=== PATIENT | male | born 1995 | race Caucasian/White ===

== ENCOUNTER 2020-05-23 00:41 | Outpatient (CLI) | payer OTHER, SELFPAY ==
[2020-05-23 17:37] LABS: SARS-CoV-2 RNA PCR Negative
== END 2020-05-23 00:42 | disposition home or self-care (01) ==
LOC: ANHCOVIDDT 00:41
PROVIDERS: PCP Family Medicine; Visit Provider Otolaryngology
DX: Z01.812 Encounter for preprocedural laboratory examination (principal); Z20.828 Contact with and (suspected) exposure to other viral communicable diseases
CPT/HCPCS: 87635; C9803; U0003

== ENCOUNTER 2020-05-26 01:00 | Day surgery (SDC) | payer OTHER, SELFPAY ==
[2020-05-19 10:41] VITALS: BMI 30.1
--- NOTE | 2020-05-20 08:07 | PM.HPGS ---
History of Present Illness History of Present Illness Consent: Risks, benefits, and alternatives have been discussed and questions answered. Patient agrees to proceed with procedure. Chief complaint: Hypertrophic Tonsils Narrative: Jose Major is a 24 year old male having a bilateral tonsillectomy Review of Systems Review of Systems: All systems reviewed & are unremarkable except as noted in HPI and below PMFSH Family History Family History Grandparent Diabetes mellitus Social History Social History Smoking status: Never smoker Alcohol intake: current Drinks per week: 1 Meds Home Medications and Allergies Home Medications Medication Instructions Recorded Confirmed Type methylphenidate HCl 54 mg 54 mg PO QAM #30 tablet 05/13/20 05/19/20 Rx tablet,extended release 24 hr Allergies Allergy/AdvReac Type Severity Reaction Status Date / Time grass pollen Allergy Unknown Unknown Verified 05/19/20 10:42 house dust mite Allergy Unknown Unknown Verified 05/19/20 10:42
--- NOTE | 2020-05-20 08:13 | PM.HPGS ---
History of Present Illness History of Present Illness Consent: Risks, benefits, and alternatives have been discussed and questions answered. Patient agrees to proceed with procedure. Chief complaint: Hypertrophic Tonsils Narrative: Jose Major is a 24 year old male is having a tonsillectomy for chronic tonsillitis Review of Systems Review of Systems: All systems reviewed & are unremarkable except as noted in HPI and below PMFSH Family History Family History Grandparent Diabetes mellitus Social History Social History Smoking status: Never smoker Alcohol intake: current Drinks per week: 1 Meds Home Medications and Allergies Home Medications Medication Instructions Recorded Confirmed Type methylphenidate HCl 54 mg 54 mg PO QAM #30 tablet 05/13/20 05/19/20 Rx tablet,extended release 24 hr Allergies Allergy/AdvReac Type Severity Reaction Status Date / Time grass pollen Allergy Unknown Unknown Verified 05/19/20 10:42 house dust mite Allergy Unknown Unknown Verified 05/19/20 10:42 Assessment and Plan Additional Plan plan is a chronic is a tonsillectomy
--- NOTE | 2020-05-26 06:13 | PM.HPGS ---
History of Present Illness History of Present Illness Consent: Risks, benefits, and alternatives have been discussed and questions answered. Patient agrees to proceed with procedure. Chief complaint: Hypertrophic Tonsils Narrative: Jose Major is a 24 year old male with recurring episodes of tonsillitis admitted for tonsillectomy Review of Systems Review of Systems: All systems reviewed & are unremarkable except as noted in HPI and below PMFSH Family History Family History Grandparent Diabetes mellitus Social History Social History Smoking status: Never smoker Alcohol intake: current Drinks per week: 1 Meds Home Medications and Allergies Home Medications Medication Instructions Recorded Confirmed Type methylphenidate HCl 54 mg 54 mg PO QAM #30 tablet 05/13/20 05/19/20 Rx tablet,extended release 24 hr Allergies Allergy/AdvReac Type Severity Reaction Status Date / Time grass pollen Allergy Unknown Unknown Verified 05/19/20 10:42 house dust mite Allergy Unknown Unknown Verified 05/19/20 10:42 Assessment and Plan Additional Plan Plan is a tonsillectomy
--- NOTE | 2020-05-26 06:14 | WPDHPUPDATE1 ---
History and Physical Update Update Date/Time: 05/26/20 06:14 History and Physical has been reviewed, including an updated exam of the patient. There are NO changes in the patient's condition. Risks, benefits, and alternatives have been discussed and questions answered. Patient agrees to proceed with procedure.
[2020-05-26 06:40] VITALS: BP 124/68; PULSE 99; RESP 18; TEMP 36.4; O2SAT 96
[2020-05-26] MEDS: LACTATED RINGERS 1,000 ML 30 ML IV CONT ×2 (06:55→09:20)
[2020-05-26] MEDS: ACETAMINOPHEN 500 MG TABLET 1000 MG PO (07:48)
--- NOTE | 2020-05-26 07:59 | WPDANESEPPF ---
Anes - Initial Pre Proc Eval Procedure: Operation Date: 05/26/20 08:15 Proposed Procedures p Tonsillectomy - Ross Luong MD Date/Time: 05/26/20 07:59 Surgeon: Ross Luong MD Pre Op Diagnosis: Hypertrophic Tonsils Patient Data Age: 24 Gender: M Height: 1.78 m Weight: 97.23 kg Last Vital Signs Temp 36.4 C 05/26/20 06:40 Pulse 99 05/26/20 06:40 Resp 18 05/26/20 06:40 BP 124/68 05/26/20 06:40 Pulse Ox 96 05/26/20 06:40 Allergies Allergy/AdvReac Type Severity Reaction Status Date / Time grass pollen Allergy Unknown Unknown Verified 05/26/20 07:19 house dust mite Allergy Unknown Unknown Verified 05/26/20 07:19 Home Medications Medication Instructions Recorded Confirmed Type methylphenidate HCl 54 mg 54 mg PO QAM #30 tablet 05/13/20 05/26/20 Rx tablet,extended release 24 hr Patient hx anesthesia problems: none Family hx anesthesia problems: none PMFSH Past Medical History Medical History (Updated 05/26/20 @ 08:00 by Jim Calvillo MD) Allergic rhinitis, cause unspecified Attention-deficit hyperactivity disorder, unspecified type Hypertrophy of tonsils Obesity Family History Family History Grandparent Diabetes mellitus Social History Social History Smoking status: Never smoker Alcohol intake: current Drinks per week: 1 Anes - Eval Final PreProcedure Day of Procedure 05/26/20 07:59 Patient weight: obese Heart: regular rate and rhythm Lungs: clear to auscultation and normal air movement Airway: Mallampati scale class II Neurological: alert and oriented Last oral intake: >/= 8 hours ASA classification: III Emergent: no Anesthetic plan: proceed Anesthesia type and monitoring: general ETT Informed Consent: The patient's anesthetic plan and its attendant risks and benefits were discussed with the patient/family/POA. Questions were solicited and answers provided to the satisfaction of the patient/family/POA.
--- NOTE | 2020-05-26 09:02 | PM.PROC ---
Procedure Note - Detailed Date of procedure: 05/26/20 Pre-op diagnosis: Hypertrophic Tonsils chronic tonsillitis Post-op diagnosis: same Procedure performed: TONSILLECTOMY/ADENOIDECTOMY SURGERY POSTOPERATIVE DISCHARGE INSTRUCTIONS DR. WRIGHT [facility] This is an information sheet to tell you some things to expect and some things not to expect when you leave the hospital after having Tonsillectomy/Adenoidectomy surgery. Please follow any specific instructions Dr. Wright has given you. 1. Diet You have received IV fluids during hospitalization, which will carry you through the next 24 to 48 hours. It should be no cause for alarm if you are not taking much liquid orally. Encourage yourself to drink liquids, but please avoid acidic liquids and hot liquids/food. Products such as orange juice or lemonade will sting and burn. Popsicles and cool liquids maybe better tolerated than thick liquids such as ice cream. Dairy product will have a tendency to make secretions thick. It is much more important that your child drink fluids than eat food. Do not be alarmed if you eat very little over the next several days. As long as you are drinking liquids, able to produce tears when crying and urinating, then adequate hydration is being maintained. Suggested foods are sherbet, Jell-O, broth, pudding, pureed vegetables, mashed potatoes..etc. No soda, potato chips, or any type of food that may scratch the throat is permitted. Do not expect to eat solid food for 7-8 days. As you begin to feel better, you may advance your diet as tolerated. 2. Nausea Nausea and vomiting can occur during the first evening as a result of having a general anesthetic. Giving pain medication or antibiotics on an empty stomach can make it worse. If you are not able to keep liquids down do not force them. Stop trying the liquids and try again in the morning. If you experience nausea and vomiting at that time, please call Dr. Wright. 3. Pain Typically patients report that the pain builds up for the first few days and is the worst around the 5th day following tonsillectomy. The amount of discomfort usually lessens, then may increase again around day 7-10 after surgery, as some of the whitish tissue covering the tonsillectomy site falls off. After this, there is generally steady improvement with less discomfort. Complete healing of the operative area generally takes several weeks. An ice collar or cold compress to the neck are soothing and may be desired. It is very common for the ears to hurt during the healing process. Ear pain, at times, may be severe. This ear pain is actually referred pain from the healing throat and is general not a result of an ear infection. If there is no drainage from the ear, there is no cause for concern. There maybe some tongue or jaw pain experienced for a couple weeks. This is caused from the position of the mouth during surgery. 4. Medication For pain relief, please take pain medication as prescribed. If nausea should occur due to pain medication, you may take plain Tylenol elixir. Please stay away from aspirin and aspirin containing products for 2 weeks. 5. Appearance The throat will have a yellow to gould-white appearance for 10-14 days. This is normal and should not cause alarm. 6. Bleeding Bleeding is a rare problem that can occur after tonsil and /or adenoid surgery. The chances of this happening are greatest during the first several hours after surgery and then between the fourth to tenth day afterwards. The normal appearance of the yellow to gould-white appearance is the area where the tonsils were removed. It is normal for this material, simil
[2020-05-26 09:10] VITALS: BP 101/52; PULSE 90; RESP 12; TEMP 36.6; O2SAT 95
[2020-05-26] MEDS: fentaNYL CITRATE INJ (*CRX) 100 MCG/2 ML VIAL 25 MCG IV PUSH (09:14)
[2020-05-26 09:20] VITALS: BP 110/85; PULSE 97; RESP 20; O2SAT 100
[2020-05-26 09:35] VITALS: BP 126/90; PULSE 94; RESP 20; O2SAT 97
[2020-05-26 09:47] VITALS: BP 122/75; PULSE 91; RESP 16
[2020-05-26] MEDS: IBUPROFEN SUSPENSION 200 MG/10 ML UDC 800 MG PO (10:04)
[2020-05-26 10:15] VITALS: BP 128/77; PULSE 89; RESP 16
--- NOTE | 2020-05-27 07:12 | PM.PROC ---
Procedure Note - Detailed Date of procedure: 05/26/20 Pre-op diagnosis: Hypertrophic Tonsils chronic tonsillitis Post-op diagnosis: same Procedure performed: tonsillectomy Description of procedure: Patient was prepped and draped in usual fashion after induction of anesthesia. The McIvor mouth gag was inserted. The tonsils were removed dissection technique hemostasis was obtained electrocautery. The mouth was inspected for bleeding. When stablized patient was awaken and brought to the recovery room in good condition. Anesthesia: GLMA Surgeon: Ross Luong MD Estimated blood loss (mL): 15 Drains: No Packing: No Pathology: none sent Complications: No immediate complications Condition: stable Disposition: PACU Findings: chronic tonsillitis
== END 2020-05-26 10:42 | disposition home or self-care (01) ==
PROVIDERS: PCP Family Medicine; Visit Provider Otolaryngology
PROC: (CPT 42826; principal; 2020-05-26 08:15)
DX: J35.01 Chronic tonsillitis (principal); F90.9 Attention-deficit hyperactivity disorder, unspecified type; E66.9 Obesity, unspecified; Z68.30 Body mass index [BMI] 30.0-30.9, adult
CPT/HCPCS: 42826; 88302; A9270; J0330; J1100; J2250; J2405; J2704; J3010; J7120

== ENCOUNTER 2020-06-05 12:24 | Day surgery (SDC) | payer OTHER, SELFPAY ==
[2020-06-05] VITALS (11 sets, daily range): BP systolic 88–133; BP diastolic 55–94; PULSE 85–108; RESP 12–28; TEMP 36–36.7; O2SAT 95–100
--- NOTE | 2020-06-05 12:49 | ED.GENADULT ---
HPI - General Adult General Chief complaint: Unspecified Stated complaint: Throat Bleeding Time Seen by Provider: 06/05/20 12:38 Source: patient Mode of arrival: ambulatory Limitations: no limitations History of Present Illness HPI narrative: Patient is a 24-year-old male who presents to emergency department for evaluation of tonsillar bleeding had tonsillectomy a week ago by Dr. Patton, was advised to come to the emergency department today when he experienced bleeding and has persisted since coughing up a small scab he notes patient denies URI symptoms or other complaints other than slight nausea presents in no distress Related Data Allergies Allergy/AdvReac Type Severity Reaction Status Date / Time grass pollen Allergy Unknown Unknown Verified 06/05/20 12:32 house dust mite Allergy Unknown Unknown Verified 06/05/20 12:32 Review of Systems Review of Systems: All systems reviewed & are unremarkable except as noted in HPI and below PMFSH Past Medical History Medical History Allergic rhinitis, cause unspecified Attention-deficit hyperactivity disorder, unspecified type Hypertrophy of tonsils Obesity Family History Family History Grandparent Diabetes mellitus Social History Social History Smoking status: Never smoker Alcohol intake: current Drinks per week: 1 Exam Narrative: Exam Narrative: GENERAL: Well-appearing, well-nourished, and in no acute distress. HEAD: Normocephalic, atraumatic. EYES: PERRLA and EOMI. ENT: Nares clear, no rhinorrhea or epistaxis. Patient with bleeding from the right posterior tonsil NECK: Supple. No adenopathy or masses. CHEST: Clear to auscultation. No respiratory distress. No wheezes rales or rhonchi HEART: Regular rate and rhythm. No murmur heard. EXTREMITIES: Normal range of motion. No edema. SKIN: Warm, dry, no rash. NEURO: No focal deficits. Alert and oriented x3. PSYCH: Normal mood and affect. Course Reevaluation(s) Reevaluation #1: Patient in the room stable at this time no distress Date: 06/05/20 Time: 13:39 Consultations Consultation #1: spoke with ent dr porter who is coming to see the patient in the ed Date: 06/05/20 Time: 12:58 Consultation #2: Patient seen by ENT will go to the OR Date: 06/05/20 Time: 13:40 Vital Signs Vital signs: Vital Signs Temperature 98.0 F 06/05/20 12:29 Pulse Rate 108 H 06/05/20 12:29 Respiratory Rate 28 H 06/05/20 12:29 Blood Pressure 133/92 H 06/05/20 12:29 Pulse Oximetry 99 06/05/20 12:29 Temperature 98.0 F 06/05/20 12:29 Pulse Rate 108 H 06/05/20 12:29 Respiratory Rate 28 H 06/05/20 12:29 Blood Pressure 133/92 H 06/05/20 12:29 Pulse Oximetry 99 06/05/20 12:29 Medical Decision Making MDM Narrative Medical decision making narrative: Patient stable at this time given fluids in emergency department hemodynamically stable will go to the OR with ENT Vital Signs Vital Signs: Vital Signs Temperature 98.0 F 06/05/20 12:29 Pulse Rate 108 H 06/05/20 12:29 Respiratory Rate 28 H 06/05/20 12:29 Blood Pressure 133/92 H 06/05/20 12:29 Pulse Oximetry 99 06/05/20 12:29 Temperature 98.0 F 06/05/20 12:29 Pulse Rate 108 H 06/05/20 12:29 Respiratory Rate 28 H 06/05/20 12:29 Blood Pressure 133/92 H 06/05/20 12:29 Pulse Oximetry 99 06/05/20 12:29 Discharge Plan Discharge Clinical Impression: Haemorrhage, tonsil, postoperative Patient Disposition: Still a Patient Condition: Stable Prescriptions: No Action methylphenidate HCl [Concerta] 54 mg tablet extended release 24hr 54 mg PO QAM Qty: 30 RF: 0 Follow-up/Referrals: Zoran Swan MD [Primary Care Provider] -
[2020-06-05] MEDS: SODIUM CHLORIDE 0.9% IV 1,000 ML 999 ML IV CONT (13:33)
--- NOTE | 2020-06-05 13:55 | PM.IMHP ---
H&P: HPI History of Present Illness Date/Time: 06/05/20 13:55 Chief complaint: Throat Bleeding Narrative: Jose Major is a 24 year old male s/p tonsillectomy several days ago. He began bleeding this afternoon. No inciting, palliating, or provoking factors. Unable to control in the ER. Review of Systems Constitutional: Constitutional: Denies fatigue, Denies fever(s) and Denies lethargy Eyes: Eyes: Denies blurry vision and Denies change in vision ENT: Reports as per HPI Cardiovascular: Cardiovascular: Denies chest pain Respiratory: Respiratory: Denies cough Endocrine: Endocrine: Denies fatigue Hematologic/Lymphatic: Hematologic/Lymphatic: Denies easy bleeding, Denies easy bruising and Denies lymphadenopathy Allergic/Immunologic: Allergic/Immunologic: Denies seasonal rhinorrhea [facility] Past Medical History Medical History Allergic rhinitis, cause unspecified Attention-deficit hyperactivity disorder, unspecified type Hypertrophy of tonsils Obesity Family History Family History (Reviewed 02/12/20 @ 09:40 by Monica Duarte, [facility]) Grandparent Diabetes mellitus Social History Social History Smoking status: Never smoker Alcohol intake: current Drinks per week: 1 Meds Home Medications and Allergies Home Medications Medication Instructions Recorded Confirmed Type methylphenidate HCl 54 mg 54 mg PO QAM #30 tablet 05/13/20 05/26/20 Rx tablet,extended release 24 hr Allergies Allergy/AdvReac Type Severity Reaction Status Date / Time grass pollen Allergy Unknown Unknown Verified 06/05/20 12:32 house dust mite Allergy Unknown Unknown Verified 06/05/20 12:32 Vital Signs Vital Signs - 24 hr 06/05/20 12:29 Temperature 36.7 C Pulse Rate 108 H Respiratory Rate 28 H Blood Pressure 133/92 H Pulse Oximetry 99 Exam Const: General: cooperative, healthy appearing, comfortable, well developed and alert HENMT: Head: normal to inspection, normocephalic and atraumatic Ears: hearing grossly normal bilaterally, external ears normal, TM's normal bilaterally and EAC's normal General nose exam: Normal external nose present, Normal nares present, No nasal polyps present, Normal nasal mucous membranes and turbinates present and Normal septum present Face and sinus: normal facial exam Mouth: Yes Normal oral and palatal mucosa present, Yes lip normal, Yes tongue normal, Yes oropharynx normal and Yes moist mucous membranes Teeth and gingiva: dentition normal and gingiva normal Throat: posterior oropharynx abnormal, tonisls abnormal, uvula midline and other (Left inferior tonsillar fossa bleeding) Eyes: General: appearance normal, both eyes and all related structures Periorbital: periorbital findings normal Eyelids: eyelids normal Conjunctivae: conjunctivae normal Sclera: sclerae normal Neck: Neck: normal visual inspection, full ROM and no lymphadenopathy Thyroid: thyroid normal Lymphatic: no lymphadenopathy noted Resp: Effort & Inspection: normal respiratory effort and able to speak in complete sentences Cardio: Jugular venous distension: no JVD Neuro: Cranial nerves: Yes CN's II-XII intact bilaterally Assessment and Plan Assessment and plan (1) Haemorrhage, tonsil, postoperative: Status: Acute Assessment and Plan: Plan is for the OR for control of post operative hemorrhage. Risks and benefits discussed in great detail. The patient voiced understanding and agreed.
--- NOTE | 2020-06-05 13:58 | WPDHPUPDATE1 ---
History and Physical Update Update Date/Time: 06/05/20 13:58 History and Physical has been reviewed, including an updated exam of the patient. There are NO changes in the patient's condition. Risks, benefits, and alternatives have been discussed and questions answered. Patient agrees to proceed with procedure.
[2020-06-05 14:00] LABS: Basophils Absolute Auto 0.1 K/mm3 (0.0-0.1); Basophils Percent Auto 0.5 % (0.2-1.2); Eosinophils Absolute Auto 0.2 K/mm3 (0-0.3); Hematocrit 40.9 % (42.0-52.0); Hemoglobin 13.2 g/dL (14.0-18.0); Immature Granulocyte Absolute 0.28 K/mm3 (0.00-0.031); Immature Granulocyte Percent A 1.8 % (0-0.5); Lymphocytes Absolute Auto 2.63 K/mm3 (0.9-3.2); Lymphocytes Percent Auto 17.2 % (18.3-44.2); Mean Corpuscular HGB Conc 32.3 g/dl (32-36); Mean Corpuscular Hemoglobin 27.8 pg (26-34); Mean Corpuscular Volume 86.1 fl (80-100); Mean Platelet Volume 8.6 fl (7.4-10.4); Monocytes Absolute Auto 0.9 K/mm3 (0.1-0.6); Monocytes Percent Auto 5.8 % (2.6-8.5); Neutrophils Absolute Auto 11.3 K/mm3 (1.3-6.7); Neutrophils Percent Auto 73.7 % (45.5-73.1); Platelet Count Result 414 k/mm3 (150-375); Red Blood Count 4.75 M/mm3 (4.6-6.20); White Blood Count 15.3 K/mm3 (4.5-10.0)
[2020-06-05] MEDS: LACTATED RINGERS 1,000 ML 30 ML IV CONT ×2 (14:00→15:11)
--- NOTE | 2020-06-05 14:00 | PC.NURSE ---
Pt. became pale, cool, diaphoretic and stated they feel like they were going to pass out. Pt. blood pressure dropped. ERP notified and is aware. Pre-op here to take patient to the OR. Pt. recovered from event and feels a lot better. Blood pressure dropped from 76/44 and increased to 88/55. IVFs still infusing.
--- NOTE | 2020-06-05 14:18 | WPDANESEPPF ---
Anes - Initial Pre Proc Eval Procedure: Operation Date: 06/05/20 14:00 Proposed Procedures p Post Op Tonsil Bleed - Dino Dietrich MD Date/Time: 06/05/20 14:18 Surgeon: Dino Dietrich MD Pre Op Diagnosis: Throat Bleeding Patient Data Age: 24 Gender: M Height: 5 ft 10 in Weight: 95.25 kg Last Vital Signs Temp 36.7 C 06/05/20 12:29 Pulse 94 06/05/20 14:00 Resp 20 06/05/20 14:00 BP 88/55 L 06/05/20 14:00 Pulse Ox 99 06/05/20 14:00 Allergies Allergy/AdvReac Type Severity Reaction Status Date / Time grass pollen Allergy Unknown Unknown Verified 06/05/20 12:32 house dust mite Allergy Unknown Unknown Verified 06/05/20 12:32 Home Medications Medication Instructions Recorded Confirmed Type methylphenidate HCl 54 mg 54 mg PO QAM #30 tablet 05/13/20 05/26/20 Rx tablet,extended release 24 hr Laboratory Tests 06/05/20 13:55 WBC 15.3 K/mm3 H K/mm3 (4.5-10.0) RBC 4.75 M/mm3 M/mm3 (4.6-6.20) Hgb 13.2 g/dL L g/dL (14.0-18.0) Hct 40.9 % L % (42.0-52.0) MCV 86.1 fl fl (80-100) MCH 27.8 pg pg (26-34) MCHC 32.3 g/dl g/dl (32-36) RDW 13.0 % % (11.5-14.5) Plt Count 414 k/mm3 H k/mm3 (150-375) MPV 8.6 fl fl (7.4-10.4) Immature Gran % (Auto) 1.8 % H % (0-0.5) Neut % (Auto) 73.7 % H % (45.5-73.1) Lymph % (Auto) 17.2 % L % (18.3-44.2) Custer % (Auto) 5.8 % % (2.6-8.5) Eos % (Auto) 1.0 % % (0-4.4) Baso % (Auto) 0.5 % % (0.2-1.2) Lymph # (Auto) 2.63 K/mm3 K/mm3 (0.9-3.2) Custer # (Auto) 0.9 K/mm3 H K/mm3 (0.1-0.6) Eos # (Auto) 0.2 K/mm3 K/mm3 (0-0.3) Baso # (Auto) 0.1 K/mm3 K/mm3 (0.0-0.1) Abs Immat Gran (auto) 0.28 K/mm3 H K/mm3 (0.00-0.031) Absolute Neuts (auto) 11.3 K/mm3 H K/mm3 (1.3-6.7) Absolute Nucleated RBC 0.0 K/mm3 K/mm3 (0.0-0.012) Nucleated RBC % 0.0 % % (0.0-0.2) Patient hx anesthesia problems: none Family hx anesthesia problems: none PMFSH Past Medical History Medical History Allergic rhinitis, cause unspecified Attention-deficit hyperactivity disorder, unspecified type Hypertrophy of tonsils Obesity Family History Family History Grandparent Diabetes mellitus Social History Social History Smoking status: Never smoker Alcohol intake: current Drinks per week: 1 Anes - Eval Final PreProcedure Day of Procedure 06/05/20 14:18 Patient weight: obese Heart: regular rate and rhythm Lungs: clear to auscultation Airway: Mallampati scale class II Neurological: alert and oriented Last oral intake: 4 hours ASA classification: III Emergent: yes Anesthetic plan: proceed Anesthesia type and monitoring: general ETT and standard monitoring Informed Consent: The patient's anesthetic plan and its attendant risks and benefits were discussed with the patient/family/POA. Questions were solicited and answers provided to the satisfaction of the patient/family/POA.
--- NOTE | 2020-06-05 15:30 | PM.PROC ---
Procedure Note - Detailed Date of procedure: 06/05/20 Pre-op diagnosis: Throat Bleeding post tonsillectomy hemorrhage Post-op diagnosis: same Procedure performed: control of post tonsillectomy hemorrhage Description of procedure: the patient was correctly identified and consent was verified in the preoperative holding area. The patient was then brought to the operating room and a time-out was performed. General anesthesia was induced and an endotracheal tube was secured the patient's airway in the midline. The bed was then rotated. A Ana Luisa mouth gag was placed in the patient's oral cavity revealing left-sided tonsillar hemorrhage. There is no bleeding vessel found per se as the area was diffusely bleeding. Bovie suction cautery at a setting of 20 and 25 was utilized to control the hemorrhage. The McIvor mouth gag was then relaxed for 30 seconds and reopened to reveal no bleeding. Hemostasis was excellent. Care of the patient was turned over to Anesthesiology. I performed all dictated portions of the procedure. Of note the left posterior pillar was missing prior to my cauterization. Anesthesia: GLMA Surgeon: Dino Dietrich MD Estimated blood loss (mL): 5 Complications: No immediate complications Condition: stable Disposition: PACU Findings: Absent left posterior pillar. Left diffuse postoperative tonsillar fossa hemorrhage.
--- NOTE | 2020-06-05 17:03 | SUR.PHASEII ---
1700; PT AWAKE AND ALERT. DENIES PAIN. READY TO GO HOME. MEETS DISCHARGE CRITERIA.
--- NOTE | 2020-06-05 17:21 | SUR.PHASEII ---
PT DRESSED AND READY FOR RIDE. DENIES PAIN OR NAUSEA.
== END 2020-06-05 17:30 | disposition home or self-care (01) ==
LOC: ANHED 13:47 → ANHSURGERY 13:52
PROVIDERS: Emergency Medicine Emergency Medical Services; Emergency Provider Emergency Medicine; PCP Family Medicine; Visit Provider Otolaryngology
PROC: (CPT 42960; principal; 2020-06-05 14:00)
DX: J95.830 Postprocedural hemorrhage of a respiratory system organ or structure following a respiratory system procedure (principal); Y83.8 Other surgical procedures as the cause of abnormal reaction of the patient, or of later complication, without mention of misadventure at the time of the procedure; F90.9 Attention-deficit hyperactivity disorder, unspecified type; E66.9 Obesity, unspecified; Z68.30 Body mass index [BMI] 30.0-30.9, adult
CPT/HCPCS: 42960; 36415; 85025; 99285; J0330; J1100; J2250; J2405; J2704; J3010; J7030; J7120

== ENCOUNTER 2025-06-05 09:09 | Outpatient (CLI) | payer BC, SELFPAY ==
--- NOTE | 2025-06-17 14:00 | WPDHOMESLEEP ---
Sleep Study - Home Unattended Date of Study: 06/05/25 Ordering Provider: Zoran Swan MD Interpreting Provider: Lakeisha Galvan, DO Home Sleep Study Type: Watch PAT Height: 1.78 m Weight: 106.594 kg Body Mass Index: 33.7 Neck Circumference (inches): 17.5 [place]: 12 Reason for Sleep Study Daytime hypersomnia Sleep History The patient is a 29-year-old male that had a sleep study ordered by his primary care physician for evaluation sleep apnea. The patient occasionally awakens from sleep short of breath. He denies awakening at night with heartburn, belching or cough. He constantly snores loudly enough that others complain. He occasionally has trouble sleeping when he has a cold. He denies waking up gasping for air throughout the night. He frequently has breathing problems at night observed by himself or others. He denies sweating excessively at night. He denies having heart palpitations or irregular heartbeats during the night. He rarely falls asleep during the day but never while driving. He denies cataplexy. He frequently has trouble at school or work due to sleepiness. He occasionally feels unable to move while waking up or falling asleep. He denies hypnagogic / hypnopompic hallucinations. He occasionally feels afraid of going to sleep. He occasionally has nightmares. He frequently remembers his dreams. He rarely has thoughts racing through his mind. He rarely feels sad or depressed. He rarely has anxiety. He denies having muscular tension. He denies noticing parts of his body jerk. He rarely kicks during the night. He denies having crawling and aching feelings in his legs and denies having leg pain during the night. He denies grinding his teeth during sleep and denies awakening with morning jaw pain. He denies being bothered by pain during the day and denies being awakened by pain during the night. He denies waking up feeling stiff in the morning. He rarely wakes up with sore or achy muscles. He denies waking up with pain in the neck, spine and other joints. He goes to bed at 11:00 p.m. every night. It takes him 15-30 minutes to fall asleep. He wakes up once throughout the night at most urinate is able to fall back asleep within 10 minutes. He wakes up at 7:00 a.m. every morning. He typically gets 7 hours of sleep per night. He will stay in bed for 20 minutes after waking up in the morning. He currently lives alone. He denies consuming any caffeinated beverages within 2 hours of bedtime. He denies engaging in physical exercise before bedtime. He will watch television before falling asleep. He denies reading before falling asleep. He denies taking naps in the afternoon or the evening. He consumes 2 caffeinated beverages per day. He denies tobacco, alcohol and recreational drug use. [facility] Past Medical History Medical History Ophthalmic migraine Hypertrophy of tonsils Allergic rhinitis, cause unspecified Attention-deficit hyperactivity disorder, unspecified type Obesity Surgical History Surgical History Hx of tonsillectomy Family History Family History Grandparent Diabetes mellitus Social History Social History Smoking status: Never smoker Alcohol intake: current Drinks per week: 1 Medications Home Medications ?Medication ?Instructions ?Recorded ?Confirmed ?Type sertraline 50 mg tablet (Zoloft) 50 mg PO DAILY #90 tabs 04/10/25 04/18/25 Rx azelastine 137 mcg (0.1 %) nasal 1 spray intranasal Q12H 30 days 04/18/25 04/18/25 Rx spray #30 mL fluticasone propionate 50 1 spray intranasal DAILY 30 days 04/18/25 04/18/25 Rx mcg/actuation nasal #16 grams spray,suspension methylphenidate HCl 54 mg 54 mg PO QAM #30 tabs 05/12/25 Rx tablet,extended release 24 hr (Concerta) methylphenidate HCl 54 mg 54 mg PO QAM #30 tabs 05/12/25 Rx tablet,extended release 24 hr (Concerta) methylphenidate HCl 54 mg 54 mg PO QAM #30 tabs 05/12/25 Rx tablet,extended release 24 hr (Concerta) Sleep Procedure The sleep study was completed using LeverPAT a technically adequate device with seven channels: peripheral arterial tone, actigraphy, body position, snore, respiratory movement, pulse oximetry, sleep staging, and heart rate. Prior to using the device, the patient received verbal and written instructions for its application and was provided with the help desk phone number for additional telephonic instruction with 24-hour availability of qualified personnel to answer questions. The study was scored using CMS guidelines. Sleep Architecture The total recording time is 7 hrs, 52 min. The total sleep time is 7 hrs, 9 min. Sleep latency is 19 minutes. REM latency is 97 minutes. The patient had 6 episodes of waking. Sleep architecture shows 17.6% deep sleep, 67.5% light sleep, and (as % Total Sleep Time) showed NREM (Light 67.5%; Deep 17.6%), and a 14.9% stage REM. The patient spent 36.8% of total sleep time in the supine position. Sleep efficiency was 90.89. Respiratory Analysis The overall AHI (pAHI 4%:) is 33.4. The overall AHI (pAHI 3%:) is 45.7. The central AHI is 0.6. The AHI was 44.2 in NREM and 53.9 in REM sleep. The AHI was 70.2 in Supine and 31.4 in Non-supine sleep. Percent of Rui Berger respirations is 0.0. Oximetry Data The oxygen desaturation index (JONATHAN 4%:) is 25.4. The mean saturation is 93%, and the lowest saturation is 82%. Time spent with saturation < 88% is 4.9 minutes. Snoring Profile Snoring average intensity is 47 dB. The patient snored above 45 decibels for 217.1 minutes, 50.5% of sleep time. Cardiac Profile The average pulse rate is 80 beats per minutes. The lowest pulse rate is 60 bpm. The highest pulse rate reported is 116 bpm. Atrial fibrillation was not detected. Premature beats occur <0.1 per minute. Assessment and Plan Assessment and Plan (1) WANDER (obstructive sleep apnea): Code(s): G47.33 - Obstructive sleep apnea (adult) (pediatric) Status: Acute Assessment and Plan: The patient had an overall AHI of 33.4 with desaturation down to 82%. This is consistent with severe sleep apnea. I recommend that the patient have a CPAP titration with the use of a hypnotic to ensure we obtain enough sleep data and find an optimal pressure setting. If the patient's insurance company does not cover the sleep study, the patient could do a trial of AutoPAP 5-15 cm H2O. Data The data obtained during this sleep study is adequate for interpretation. Certification This sleep study has been reviewed by a board certified sleep medicine physician.
[2025-06-17 14:02] VITALS: BMI 33.7
== END 2025-06-06 10:45 | disposition home or self-care (01) ==
PROVIDERS: PCP Family Medicine; Visit Provider Family Medicine
DX: G47.33 Obstructive sleep apnea (adult) (pediatric) (principal); F90.9 Attention-deficit hyperactivity disorder, unspecified type; F39 Unspecified mood [affective] disorder
CPT/HCPCS: 95800

== ENCOUNTER 2025-08-05 09:26 | Outpatient (CLI) | payer BC, SELFPAY ==
[2025-09-04 17:30] VITALS: BMI 33.6
--- NOTE | 2025-09-04 17:30 | WPDSLEEPSTUD ---
Sleep Study Date of Study: 08/05/25 Ordering Provider: Sadie Echeverria APRN Interpreting Physician: Lakeisha Galvan DO Sleep Study Type: CPAP Titration Height: 1.78 m Weight: 106.458 kg Body Mass Index: 33.6 Neck Circumference (inches): 17.5 [place]: 12 Reason for Sleep Study Daytime hypersomnia Sleep History The patient is a 29-year-old male that had a sleep study ordered by his primary care physician for evaluation sleep apnea. The patient occasionally awakens from sleep short of breath. He denies awakening at night with heartburn, belching or cough. He constantly snores loudly enough that others complain. He occasionally has trouble sleeping when he has a cold. He denies waking up gasping for air throughout the night. He frequently has breathing problems at night observed by himself or others. He denies sweating excessively at night. He denies having heart palpitations or irregular heartbeats during the night. He rarely falls asleep during the day but never while driving. He denies cataplexy. He frequently has trouble at school or work due to sleepiness. He occasionally feels unable to move while waking up or falling asleep. He denies hypnagogic / hypnopompic hallucinations. He occasionally feels afraid of going to sleep. He occasionally has nightmares. He frequently remembers his dreams. He rarely has thoughts racing through his mind. He rarely feels sad or depressed. He rarely has anxiety. He denies having muscular tension. He denies noticing parts of his body jerk. He rarely kicks during the night. He denies having crawling and aching feelings in his legs and denies having leg pain during the night. He denies grinding his teeth during sleep and denies awakening with morning jaw pain. He denies being bothered by pain during the day and denies being awakened by pain during the night. He denies waking up feeling stiff in the morning. He rarely wakes up with sore or achy muscles. He denies waking up with pain in the neck, spine and other joints. He goes to bed at 11:00 p.m. every night. It takes him 15-30 minutes to fall asleep. He wakes up once throughout the night at most urinate is able to fall back asleep within 10 minutes. He wakes up at 7:00 a.m. every morning. He typically gets 7 hours of sleep per night. He will stay in bed for 20 minutes after waking up in the morning. He currently lives alone. He denies consuming any caffeinated beverages within 2 hours of bedtime. He denies engaging in physical exercise before bedtime. He will watch television before falling asleep. He denies reading before falling asleep. He denies taking naps in the afternoon or the evening. He consumes 2 caffeinated beverages per day. He denies tobacco, alcohol and recreational drug use. [facility] Past Medical History Medical History (Updated 07/07/25 @ 10:04 by Catrachito Mendez MD) Deviated nasal septum Ophthalmic migraine Hypertrophy of tonsils Allergic rhinitis, cause unspecified Attention-deficit hyperactivity disorder, unspecified type Obesity Surgical History Surgical History Hx of tonsillectomy Family History Family History Grandparent Diabetes mellitus Social History Social History Smoking status: Never smoker Alcohol intake: current Drinks per week: 1 Medications Home Medications ?Medication ?Instructions ?Recorded ?Confirmed ?Type sertraline 50 mg tablet (Zoloft) 50 mg PO DAILY #90 tabs 04/10/25 04/18/25 Rx eszopiclone 1 mg tablet (Lunesta) 1 mg PO QHS #1 tablet 06/17/25 Rx methylphenidate HCl 54 mg 54 mg PO QAM #30 tabs 08/08/25 Rx tablet,extended release 24 hr (Concerta) methylphenidate HCl 54 mg 54 mg PO QAM #30 tabs 08/08/25 Rx tablet,extended release 24 hr (Concerta) methylphenidate HCl 54 mg 54 mg PO QAM #30 tabs 08/08/25 Rx tablet,extended release 24 hr (Concerta) Sleep Procedure A full night CPAP Titration using the [employer] multi-channel system recorded the standard physiologic parameters including EEG, EOG, submentalis EMG, anterior tibialis EMG, EKG, body position, nasal and oral airflow using nasal pressure sensor and thermistor.? Respiratory parameters of chest and abdominal movements were recorded with Respiratory Inductance Plethysmography belts. Oxygen saturation was recorded by pulse oximetry. Video monitoring was also performed. Sleep stages, periodic limb movements, and EEG arousals were scored in 30 second epochs according to the criteria of the AASM Scoring Manual. The Apnea-Hypopnea Index was calculated using CMS guidelines for definition of hypopnea with 4% O2 desaturations while scoring respiratory events. Sleep Architecture The total recording time was 366.9 minutes.? The total sleep time was 246.0 minutes. Sleep latency was 8.4 minutes. REM latency was 75.5 minutes. Sleep efficiency was 67.1%. The patient had 24 awakenings for an awakening index of 5.9. Wake after Sleep Onset time was 112.0 minutes. The patient spent 18.5 minutes, 7.5% of total sleep time in Stage N1. The patient spent 160.0 minutes, 65.0% in Stage N2. The patient spent 33.5 minutes, 13.6% in Stage N3. The patient spent 34.0 minutes, 13.8% in Stage REM. Respiratory Analysis The patient had 42 hypopneas, 33 obstructive apneas, 17 mixed apneas, and 38 central apneas for an overall Apnea Hypopnea Index of 31.7 events per hour. The REM Apnea Hypopnea Index was 5.3. The NREM Apnea Hypopnea Index was 35.9. The patient had a Central Apnea Hypopnea Index of 9.3. There was no evidence of Rui-Berger Respirations. The patient was started on CPAP 4 cm H2O and titrated to CPAP 14 cm H2O before switching to BPAP 14/10 cm H2O. The patient wwas able to fall asleep starting on CPAP 4 cm H2O. The patient was able to achieve REM sleep starting at CPAP 7 cm H2O. The lowest residual AHI Arousals There were 107 total arousals for an arousal index of 26.1. There were 76 spontaneous arousals for an index of 18.5. ?There were 27 arousals due to respiratory events for an index of 6.6. There were 0 arousals due to periodic limb movements for an index of 0.? There were 4 arousals due to isolated limb movements for an index of 1.0. Periodic Limb Movements The patient had 14 isolated limb movements with an index of 3.4. The patient had 19 periodic limb movements with index of 4.6. Patient had a total of 33 limb movements with a total limb movement index of 8.0. Oximetry Data The patient had an average oxygen saturation of 94.2% in sleep with a minimum oxygen saturation of 86.0% and a maximum oxygen saturation of 98.0%. The patient had 112 oxygen desaturations that were 4% or greater resulting in an Oxygen Desaturation Index of 27.3.? The patient spent 1.8 minutes, 0.5% of total sleep time with an oxygen saturation below 88%. Snoring Profile Mild snoring was present in the beginning of the study. The snoring resolved once the patient was titrated to CPAP 14 cm H2O. Cardiac Profile The EKG showed normal sinus rhythm. No arrhythmias or premature beats were seen. The patient had an average pulse rate of 89.2 bpm with a minimum pulse rate of 75.0 bpm and a maximum pulse rate of 110.0 bpm. ? EEG Profile No signs of seizure activity seen. Assessment and Plan Data The data obtained during this sleep study is adequate for interpretation. Certification This sleep study has been reviewed by a board certified sleep medicine physician.
== END 2025-08-06 05:36 | disposition home or self-care (01) ==
PROVIDERS: PCP Family Medicine; Visit Provider Nurse Practitioner Family
DX: G47.33 Obstructive sleep apnea (adult) (pediatric) (principal)
CPT/HCPCS: 95811